=== PATIENT | female | born 1945 | race Caucasian/White ===

== ENCOUNTER → 2016-12-13 | Outpatient (CLI) | payer OTHER ==
[~2016-12-13] MED LIST: SYNTHROID50 MCG PO
== END ==
LOC: US 13:30
DX: M25.531 Pain in right wrist (principal); R05 Cough; I10 Essential (primary) hypertension; J43.9 Emphysema, unspecified
CPT/HCPCS: 71020; 73110

== ENCOUNTER → 2021-11-12 | Outpatient (CLI) | payer OTHER | LOC: KOH-I 14:56 | DX: M25.551 Pain in right hip (principal); M79.604 Pain in right leg | CPT/HCPCS: 73502; 73552 ==

== ENCOUNTER → 2022-01-15 | Outpatient (CLI) | payer OTHER | LOC: KOH-I 15:13 | DX: M54.50 Low back pain, unspecified (principal); M51.36 Other intervertebral disc degeneration, lumbar region | CPT/HCPCS: 72100 ==

== ENCOUNTER → 2022-01-24 | Outpatient (CLI) | payer OTHER | LOC: KOH-I 13:45 | DX: M25.551 Pain in right hip (principal); R29.898 Other symptoms and signs involving the musculoskeletal system; M70.61 Trochanteric bursitis, right hip; M16.11 Unilateral primary osteoarthritis, right hip; M47.816 Spondylosis without myelopathy or radiculopathy, lumbar region | CPT/HCPCS: 72148; 73721 ==